=== PATIENT | female | born 1975 | race Two or more races ===

== ENCOUNTER 2021-04-07 07:37 | Day surgery (SDC) | payer OTHER ==
[2021-03-31 16:50] VITALS: BMI 28.9
[2021-04-07] MEDS ORDERED: MIDAZOLAM HCL 2 MG/2 ML SINGLE DOSE VIAL ONE (08:57)
[2021-04-07] MEDS ORDERED: DEXAMETHASONE SOD PHOSPHATE 10 MG/1 ML VIAL ONE (08:57)
[2021-04-07] MEDS ORDERED: ROPIVACAINE HCL 0.5% 30ML VIAL ONE (08:58)
[2021-04-07] MEDS ORDERED: PROPOFOL 20 ML ONE ×3 (09:57)
[2021-04-07] MEDS ORDERED: ceFAZolin SODIUM 1 GM VIAL ONE (09:58)
[2021-04-07] MEDS ORDERED: ONDANSETRON 4 MG/2 ML VIAL ONE ×3 (09:59→12:19)
[2021-04-07] MEDS ORDERED: DEXAMETHASONE SOD PHOSPHATE 4 MG/1 ML VIAL ONE (09:59)
[2021-04-07 12:06] VITALS: TEMP 97.8
[2021-04-07] MEDS ORDERED: oxyCODONE HCL 5 MG TABLET PO PRN (12:28)
[2021-04-07] MEDS ORDERED: ONDANSETRON 4 MG/2 ML VIAL IVPUSH PRN (12:28)
[2021-04-07] MEDS ORDERED: LACTATED RINGERS SOLUTION 1,000 ML IV SCH (12:30)
[2021-04-07 12:38] VITALS: BP 124/77; PULSE 62
== END 2021-04-07 12:56 | disposition home or self-care (01) ==
LOC: FASU 07:37
PROVIDERS: ATTEND Orthopaedic Surgery
PROC: 0LQ14ZZ Repair Right Shoulder Tendon, Percutaneous Endoscopic Approach (ICD-10-PCS; 2021-04-07)
PROC: 0RBJ4ZZ Excision of Right Shoulder Joint, Percutaneous Endoscopic Approach (ICD-10-PCS; 2021-04-07)
PROC: 0RQJ4ZZ Repair Right Shoulder Joint, Percutaneous Endoscopic Approach (ICD-10-PCS; principal; 2021-04-07 10:11)
DX: S43.431A Superior glenoid labrum lesion of right shoulder, initial encounter (principal); M25.611 Stiffness of right shoulder, not elsewhere classified; M75.101 Unspecified rotator cuff tear or rupture of right shoulder, not specified as traumatic; M94.211 Chondromalacia, right shoulder; M67.211 Synovial hypertrophy, not elsewhere classified, right shoulder; M75.41 Impingement syndrome of right shoulder; M24.011 Loose body in right shoulder; X58.XXXA Exposure to other specified factors, initial encounter; Y93.9 Activity, unspecified; Y92.9 Unspecified place or not applicable
CPT/HCPCS: 84703; 94760; J1100